=== PATIENT | female | born 1995 | race African-American/Black ===

== ENCOUNTER 2020-05-24 07:30 | Inpatient (IN) | payer OTHER ==
[2020-05-24] MEDS: ELECTROLYTE-148 SOLN 1,000 ML IV SCH (08:40)
[2020-05-24] MEDS ORDERED: CITRIC ACID/SODIUM CITRATE 30 ML UNIT-DOSE CUP PO ONE (08:52)
[2020-05-24 08:56] VITALS: BMI 39.2
--- NOTE | 2020-05-24 09:03 | HP ---
Past Medical History - Primary Care Physician PCP:: Tejinder Limon - Admission Chief Complaint: none. presents for scheduled rpt cesrean section History of Present Illness: pt. had prior for genital hsv. declines . declined valtrex prophylaxis. on seroquel for hx depression. History Source: Patient - Past Medical History Reproductive: Yes: Other (genital hsv. no current lesions per pt.) ...: 4 ...Para: 1 ...Term: 1 ...: 0 ...Spon : 0 ...Induced : 2 ...Living Children: 1 ...Multiple Gestation: 0 ...LMP: 08/22/19 ... Weeks Gestation by Dates: 39.2 ...EDC by Dates: 05/29/20 ...EDC by Sono: 05/28/20 - Past Surgical History Past Surgical History: Yes: Hx Myomectomy: No Hx Transabdominal Cerclage: No - Smoking History Smoking history: Never smoked - Alcohol/Substance Use Hx Alcohol Use: No History of Substance Use: reports: None Home Medications - Allergies Allergies/Adverse Reactions: Allergies Allergy/AdvReac Type Severity Reaction Status Date / Time No Known Allergies Allergy Verified 05/20/20 18:49 - Home Medications Home Medications: Ambulatory Orders Pnv 29-1 Tablet 1 tab PO DAILY 05/17/20 Quetiapine Fumarate [Seroquel -] 400 mg PO HS 05/24/20 Review of Systems - Review of Systems Constitutional: reports: No Symptoms Psychiatric: reports: Depression Physical Exam - Maternity Vital Signs: Vital Signs Temperature 98.4 F 05/24/20 08:28 Pulse Rate 112 H 05/24/20 08:28 Respiratory Rate 20 05/24/20 08:28 Blood Pressure 116/70 05/24/20 08:28 O2 Sat by Pulse Oximetry (%) Constitutional: Yes: Well Nourished, No Distress, Calm Cardiovascular: Yes: WNL Lungs: Clear to auscultation - Abdominal Exam/OB Number of Fetuses: Single Presentation: Vertex Contractions: Yes Regularity: Irregular Intensity: Unaware Monitor Mode: External Heart Rate (range): 140 Accelerations: Uniform Decelerations: None - Vaginal Exam/OB Vaginal Bleeding: No Speculum Exam: No - Physical Exam Musculoskeletal: Yes: WNL Extremities: Yes: WNL - Labs Lab Results: B pos rubella: immune varicella: non immune vdrl : nr hiv: neg gc: neg chl: neg gbs: pos
[2020-05-24] MEDS ORDERED: morphine SULFATE/PF 0.5 MG/ML (2cc Syringe - QUVA) ONE (09:38)
[2020-05-24] MEDS ORDERED: ceFAZolin SODIUM 1 GM VIAL ONE ×2 (10:31)
[2020-05-24] MEDS ORDERED: ceFAZolin SODIUM 1 GM VIAL IVPB ONE (10:32)
[2020-05-24] MEDS ORDERED: OXYTOCIN 10 UNITS/ML VIAL ONE ×4 (10:52→11:36)
[2020-05-24] MEDS ORDERED: METHYLERGONOVINE MALEATE 0.2 MG/1 ML AMP IM ONE (11:13)
[2020-05-24] MEDS ORDERED: ONDANSETRON 4 MG/2 ML VIAL IVPUSH PRN (11:51)
--- NOTE | 2020-05-24 12:06 | OP ---
Operative Note - Note: Operative Date: 05/24/20 Pre-Operative Diagnosis: at 39 weeks, previous , declines tolac Operation: rpt LTCS Findings: rpt LTCS live baby boy, APGARS 9,9 normal appearing uterine body, but fundal area adherent to ant abd wall densely. unable to lyse adhesions or visualize adnexa clearly. uterine repair done without exteriorization. hemostasis with pitocin and methergine skin with veena placenta to pathology [id number]. Post-Operative Diagnosis: Same as Pre-op Surgeon: Tejinder Limon Security Clerk: Eliseo Loyd Anesthesiologist/OCEAN FREIGHT MANAGER: Reyes French Anesthesia: Spinal Specimens Removed: placenta Estimated Blood Loss (mls): 800 Operative Report Dictated: Yes
[2020-05-24 12:13] LABS: CORD BASE EXCESS -3.8 mmol/L (0-2); CORD HCO3 21.5 mmHg (20-29); CORD PCO2 40.2 mmHg (30-78); CORD pH 7.347 (7.14-7.44)
[2020-05-24 12:15] LABS: CORD BASE EXCESS -1.7 mmol/L (0-2); CORD HCO3 26.7 mmHg (20-29); CORD PCO2 60.1 mmHg (30-78); CORD pH 7.266 (7.14-7.44)
[2020-05-24] MEDS ORDERED: oxyCODONE HCL 5 MG TABLET PO PRN (12:15)
[2020-05-24] MEDS ORDERED: IBUPROFEN 600 MG TABLET (FP) PO PRN (12:15)
[2020-05-24] MEDS ORDERED: METHYLERGONOVINE MALEATE 0.2 MG/1 ML AMP IM PRN (12:15)
[2020-05-24 12:22] VITALS: RESP 20; O2SAT 99
[2020-05-24] MEDS ORDERED: ONDANSETRON 4 MG/2 ML VIAL ONE (12:56)
[2020-05-24] MEDS: OXYTOCIN 20 UNITS in 0.9% NS 20 UNIT/1,000 ML INFUS.BAG IV SCH (14:04)
[2020-05-24] MEDS ORDERED: ACETAMINOPHEN 1000 MG/100 ML VIAL (NON FORMULARY) IVPB ONE (14:14)
--- NOTE | 2020-05-24 14:15 | OP ---
DATE OF OPERATION: 05/24/2020 PREOPERATIVE DIAGNOSIS: at 39 weeks with previous section, declined trial of labor after section. OPERATION: A repeat low transverse section. SURGEON: Tejinder Limon MD MODELING AND SIMULATION ANALYST: DICK Pena ANESTHESIA: Spinal anesthesia. ANTIBIOTICS: IV antibiotics were given preoperatively, Ancef. DESCRIPTION OF PROCEDURE: Patient was taken to the operating room, placed on the table in dorsal supine position after spinal anesthesia was administered and found to be adequate. Patient was then prepped and draped in the usual sterile manner. A Pfannenstiel skin incision was made with the scalpel and carried through to the level of the underlying fascia using the electrocautery. Electrocautery was then used the incise the fascia in the midline, extending the incision bilaterally. Fascia was tented up from the underlying rectus muscles, rectus muscles in the midline, and then peritoneum was entered, with good visualization of bladder and bowel. The incision was extended superiorly and inferiorly. Of note at this time was densely adherent uterus to the anterior abdominal wall. The lower uterine segment was incised in a transverse fashion with the scalpel and the incision extended bilaterally with the bandage scissors. The 's head was delivered atraumatically. The nose and mouth were suctioned. The cord was around the foot x1. This was reduced, and then the delayed cord clamping was done past 30 seconds. The infant was handed off to the awaiting tableau report developer. The uterus was unable to be exteriorized. The placenta was expressed, and the uterus was cleared of any clots and debris. The lower uterine segment with closed with running, locking No. 1 Biosyn suture with excellent hemostasis. The uterus was mildly atonic at the time of repair before it was completed, this was noted. Uterine massage was done. IV Pitocin was received and a dose of IM Methergine. Subsequently, uterus contracted well and hemostasis was good. The incision line was inspected and noted to be good and hemostatic, and the pelvis and abdomen were cleared of any clots. The peritoneum was closed with a running 2-0 chromic suture. Following closure of the peritoneum (along with some adherent muscle), the fascia layer was then approximated. This was done using No. 1 Vicryl suture, and the subcutaneous fat layer was approximated with 3-0 plain gut, and then the skin closure was done with veena. Upon completion of the procedure, a sterile dressing was placed over the incision. The uterus was expressed of any clots and debris. The patient tolerated the procedure well. Sponge, lap, needle, and instrument counts were correct x2. Patient was then transferred to recovery room in stable condition. There were no complications. TEJINDER LIMON MD [id number] MTDD
[2020-05-24] MEDS ORDERED: CEFAZOLIN 1 GM in DEXTROSE 5%-WATER - 50 ML IVPB SCH (18:00)
[2020-05-24] MEDS: ACETAMINOPHEN 325 MG TABLET (FP) PO PRN (20:49)
[2020-05-24] MEDS: IBUPROFEN 600 MG TABLET (FP) PO PRN (20:51)
[2020-05-24] MEDS: SIMETHICONE 80 MG TAB.CHEW (FP) PO PRN (20:53)
[2020-05-25] MEDS: CEFAZOLIN 1 GM/D5W 1 GM/50 ML BAG IVPB SCH ×2 (01:53→10:58)
[2020-05-25] MEDS: ACETAMINOPHEN 325 MG TABLET (FP) PO PRN ×3 (05:42→20:46)
[2020-05-25] MEDS: IBUPROFEN 600 MG TABLET (FP) PO PRN ×3 (05:42→20:46)
[2020-05-25] MEDS: SIMETHICONE 80 MG TAB.CHEW (FP) PO PRN ×2 (05:48→20:45)
[2020-05-25 08:11] LABS: BASO % 0.3 % (0-2.0); EOS % 1.2 % (0-4.5); HEMATOCRIT 24.6 % (32.4-45.2); HEMOGLOBIN 8.2 GM/dL (10.7-15.3); LYMPH % 12.1 % (8-40); MCH 29.6 pg (25.7-33.7); MCHC 33.4 g/dl (32.0-36.0); MEAN CELL VOLUME 88.6 fl (80-96); MEAN PLT VOLUME 9.1 fl (7.5-11.1); MONO % 6.4 % (3.8-10.2); PLATELET COUNT 122 K/MM3 (134-434); RBC 2.78 M/mm3 (3.60-5.2); RDW 15.1 % (11.6-15.6); WHITE BLOOD COUNT 8.6 K/mm3 (4.0-10.0)
--- NOTE | 2020-05-25 09:01 | PN ---
Post Progress Note - Subjective Subjective: Denies any complaints Dillard out, has not voided yet History of depression and bipolar on Seroquel Post Day: 1 Type of Delivery: Repeat C/S Vital Signs: Vital Signs Temperature 98.6 F 05/25/20 06:00 Pulse Rate 110 H 05/25/20 06:00 Respiratory Rate 18 05/25/20 06:00 Blood Pressure 109/64 05/25/20 06:00 O2 Sat by Pulse Oximetry (%) 100 05/24/20 18:00 Uterus: Yes: Fundus Firm Incision: Yes: Dressing dry and intact Abdomen/GI: Yes: Abdomen soft Lochia: Yes: Rubra Lochia, amount: Small Extremities: Yes: Calves non-tender Activity: Ambulating (Ambulation, pain management, psych consult, poss discharge POD 3) - Labs Labs: CBC WBC 8.6 K/mm3 (4.0-10.0) 05/25/20 07:35 RBC 2.78 M/mm3 (3.60-5.2) L 05/25/20 07:35 Hgb 8.2 GM/dL (10.7-15.3) L 05/25/20 07:35 Hct 24.6 % (32.4-45.2) L D 05/25/20 07:35 MCV 88.6 fl (80-96) 05/25/20 07:35 MCH 29.6 pg (25.7-33.7) 05/25/20 07:35 MCHC 33.4 g/dl (32.0-36.0) 05/25/20 07:35 RDW 15.1 % (11.6-15.6) 05/25/20 07:35 Plt Count 122 K/MM3 (134-434) L D 05/25/20 07:35 MPV 9.1 fl (7.5-11.1) 05/25/20 07:35 Absolute Neuts (auto) 6.9 K/mm3 (1.5-8.0) 05/25/20 07:35 Neutrophils % 80.0 % (42.8-82.8) 05/25/20 07:35 Lymphocytes % 12.1 % (8-40) 05/25/20 07:35 Monocytes % 6.4 % (3.8-10.2) 05/25/20 07:35 Eosinophils % 1.2 % (0-4.5) 05/25/20 07:35 Basophils % 0.3 % (0-2.0) 05/25/20 07:35 Nucleated RBC % 0 % (0-0) 05/25/20 07:35
[2020-05-25] MEDS: ENOXAPARIN NA (PORCINE) 40 MG/0.4 ML DISP.SYRIN SQ SCH (11:14)
[2020-05-25] MEDS ORDERED: BISACODYL 10 MG SUPP.RECT RC PRN (12:15)
--- NOTE | 2020-05-25 12:17 | PN ---
Progress Note, Physician Chief Complaint: s/p c section under spinal anesthesia History of Present Illness: post op day one with duramorph for post op pain control - Current Medication List Current Medications: Active Medications Acetaminophen (Tylenol -) 650 mg PO Q4H PRN PRN Reason: FEVER Last Admin: 05/25/20 11:08 Dose: 650 mg Documented by: Bisacodyl (Dulcolax Suppository -) 10 mg RC PRN PRN PRN Reason: CONSTIPATION Diphenhydramine HCl (Benadryl Injection -) 25 mg IVPUSH Q4H PRN PRN Reason: Pruritis Last Admin: 05/25/20 05:42 Dose: 25 mg Documented by: Enoxaparin Sodium (Lovenox -) 40 mg SQ DAILY [facility] Last Admin: 05/25/20 11:14 Dose: 40 mg Documented by: Ferrous Sulfate (Feosol -) 325 mg PO BIDWM [facility] Parenteral Electrolytes (Plasma-Lyte 148 -) 1,000 mls @ 125 mls/hr IV ASDIR [facility] Last Admin: 05/24/20 08:40 Dose: 125 mls/hr Documented by: Oxytocin/Sodium Chloride (Normal Saline+20 Units Oxytocin -) 20 unit in 1,000 mls @ 125 mls/hr IV ASDIR [facility] Last Admin: 05/24/20 14:04 Dose: 125 mls/hr Documented by: Ibuprofen (Motrin -) 600 mg PO Q4H PRN PRN Reason: PAIN LEVEL 1-5 Last Admin: 05/25/20 10:58 Dose: 600 mg Documented by: Methylergonovine Maleate (Methergine Injection -) 0.2 mg IM Q4H PRN PRN Reason: Excessive Bleeding (L&D) Ondansetron HCl (Zofran Injection) 4 mg IVPUSH Q4H PRN PRN Reason: NAUSEA Last Admin: 05/24/20 13:00 Dose: 4 mg Documented by: Oxycodone HCl (Roxicodone -) 5 mg PO Q4H PRN PRN Reason: PAIN LEVEL 4 - 6 Oxycodone HCl (Roxicodone -) 10 mg PO Q4H PRN PRN Reason: PAIN LEVEL 7 - 10 Quetiapine Fumarate (Seroquel Xr -) 400 mg PO HS@1999 [facility] Last Admin: 05/24/20 22:36 Dose: 400 mg Documented by: Simethicone (Mylicon -) 80 mg PO Q4H PRN PRN Reason: GAS Last Admin: 05/25/20 05:48 Dose: 80 mg Documented by: - Objective Vital Signs: Vital Signs Temperature 97.7 F 05/25/20 10:00 Pulse Rate 117 H 05/25/20 10:00 Respiratory Rate 16 05/25/20 10:00 Blood Pressure 102/55 L 05/25/20 10:00 O2 Sat by Pulse Oximetry (%) 100 05/25/20 10:00 Constitutional: Yes: Well Nourished Cardiovascular: Yes: WNL Respiratory: Yes: WNL Gastrointestinal: Yes: WNL Labs: CBC, BMP 05/25/20 07:35 Assessment/Plan No adverse effects of anesthetic, pain controlled, dept of anesthesiology will sign off care at this time
--- NOTE | 2020-05-25 12:31 | CON.PSY ---
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 Has been seen at [facility] in [facility].Patient has been stable and not displaying any acute Depression or Psychosis. No suicidal or Homicidal ideas. Loves her baby and has good support system at home. - Previous Psychiatric Treatment Outpatient: More than 6 mos ago Inpatient: Within the last 12 months, One prior admission - Previous Substance Abuse Treatment Outpatient: None Inpatient: None - Reason for Previous Treatment Reason for Previous Treatment: Major Depression - Current Medications Current Medications: Active Medications Acetaminophen (Tylenol -) 650 mg PO Q4H PRN PRN Reason: FEVER Last Admin: 05/25/20 11:08 Dose: 650 mg Documented by: Bisacodyl (Dulcolax Suppository -) 10 mg RC PRN PRN PRN Reason: CONSTIPATION Diphenhydramine HCl (Benadryl Injection -) 25 mg IVPUSH Q4H PRN PRN Reason: Pruritis Last Admin: 05/25/20 05:42 Dose: 25 mg Documented by: Enoxaparin Sodium (Lovenox -) 40 mg SQ DAILY [facility] Last Admin: 05/25/20 11:14 Dose: 40 mg Documented by: Ferrous Sulfate (Feosol -) 325 mg PO BIDWM [facility] Parenteral Electrolytes (Plasma-Lyte 148 -) 1,000 mls @ 125 mls/hr IV ASDIR [facility] Last Admin: 05/24/20 08:40 Dose: 125 mls/hr Documented by: Oxytocin/Sodium Chloride (Normal Saline+20 Units Oxytocin -) 20 unit in 1,000 mls @ 125 mls/hr IV ASDIR [facility] Last Admin: 05/24/20 14:04 Dose: 125 mls/hr Documented by: Ibuprofen (Motrin -) 600 mg PO Q4H PRN PRN Reason: PAIN LEVEL 1-5 Last Admin: 05/25/20 10:58 Dose: 600 mg Documented by: Methylergonovine Maleate (Methergine Injection -) 0.2 mg IM Q4H PRN PRN Reason: Excessive Bleeding (L&D) Ondansetron HCl (Zofran Injection) 4 mg IVPUSH Q4H PRN PRN Reason: NAUSEA Last Admin: 05/24/20 13:00 Dose: 4 mg Documented by: Oxycodone HCl (Roxicodone -) 5 mg PO Q4H PRN PRN Reason: PAIN LEVEL 4 - 6 Oxycodone HCl (Roxicodone -) 10 mg PO Q4H PRN PRN Reason: PAIN LEVEL 7 - 10 Quetiapine Fumarate (Seroquel Xr -) 400 mg PO HS@1999 [facility] Last Admin: 05/24/20 22:36 Dose: 400 mg Documented by: Simethicone (Mylicon -) 80 mg PO Q4H PRN PRN Reason: GAS Last Admin: 05/25/20 05:48 Dose: 80 mg Documented by: - Allergies Allergies: Allergies Allergy/AdvReac Type Severity Reaction Status Date / Time No Known Allergies Allergy Verified 05/20/20 18:49 - Current Living Status Usual Living Arrangement: With Significant Other - Current Mental Status Evaluation Appearance: Well Groomed Attitude: Cooperative - Affect Affect: Full Range Appropriateness: Appropriate to Content - Mood Mood: Euthymic - Speech/Language Expressive: Coherent - Psychomotor Activity Psychomotor Activity: Normal - Thought Process Thought Process: Intact - Thought Content Hallucinations: Absent Delusions: Absent - Self Perception Self Perception: No Impairment - Cognition Attention: Alert Orientation: Time Memory, Immediate Recall: Intact Memory, Short Term: 3/3 Memory, Remote with Promptin/3 - Concentration Serial Sevens Intact: Yes Simple Calculations Intact: Yes - Abstraction Proverb Interpretation: Intact Judgement: Intact - Insight Insight: Intact - Impulse Control Impulse Control: Good Control - Suicidal Ideation Suicidal Ideation: No - Homicidal Ideation Homicidal Ideation: No Assessment/Plan 10 Patient is Psychiatrically stable at this time. @) continue with Seroquel 400 mg er hs. 3) will follow up with her [facility]/.
[2020-05-25] MEDS: FERROUS SO4 325 MG TABLET (FP) PO SCH (18:42)
[2020-05-25] MEDS: oxyCODONE HCL 5 MG TABLET PO PRN (20:47)
[2020-05-25 21:43] LABS: BASO % 0.4 % (0-2.0); EOS % 0.9 % (0-4.5); HEMATOCRIT 25.9 % (32.4-45.2); HEMOGLOBIN 8.8 GM/dL (10.7-15.3); LYMPH % 8.9 % (8-40); MCH 30.2 pg (25.7-33.7); MCHC 33.8 g/dl (32.0-36.0); MEAN CELL VOLUME 89.2 fl (80-96); MEAN PLT VOLUME 8.7 fl (7.5-11.1); MONO % 5.8 % (3.8-10.2); PLATELET COUNT 149 K/MM3 (134-434); RBC 2.91 M/mm3 (3.60-5.2); RDW 15.3 % (11.6-15.6); WHITE BLOOD COUNT 9.9 K/mm3 (4.0-10.0)
[2020-05-25] MEDS ORDERED: LACTATED RINGERS SOLUTION 1,000 ML IV SCH (21:45)
[2020-05-26] MEDS: SIMETHICONE 80 MG TAB.CHEW (FP) PO PRN (06:04)
[2020-05-26] MEDS: IBUPROFEN 600 MG TABLET (FP) PO PRN ×3 (06:04→22:42)
[2020-05-26] MEDS: ACETAMINOPHEN 325 MG TABLET (FP) PO PRN ×3 (06:04→22:43)
[2020-05-26] MEDS: oxyCODONE HCL 5 MG TABLET PO PRN (06:04)
[2020-05-26] MEDS ORDERED: ACETAMINOPHEN 500 MG TABLET (FP) PO ONE (06:30)
[2020-05-26] MEDS ORDERED: CEFAZOLIN 2 GM/D5W 2 GM/50 ML ML IVPB SCH (06:45)
[2020-05-26] MEDS ORDERED: LACTATED RINGERS SOLUTION 500 ML IV ONE (06:45)
--- NOTE | 2020-05-26 08:08 | PN ---
Post Progress Note Type of Delivery: Repeat C/S Vital Signs: Vital Signs Temperature 103.1 F H 05/26/20 06:00 Pulse Rate 140 H 05/26/20 06:00 Respiratory Rate 18 05/26/20 06:00 Blood Pressure 113/56 L 05/26/20 06:00 O2 Sat by Pulse Oximetry (%) 98 05/26/20 06:00 Breast Exam: Yes: Soft Uterus: Yes: Fundus Firm Incision: Yes: Dressing dry and intact Abdomen/GI: Yes: Abdomen soft Extremities: Yes: Calves non-tender Activity: Ambulating - Labs Labs: CBC WBC 9.9 K/mm3 (4.0-10.0) 05/25/20 21:35 RBC 2.91 M/mm3 (3.60-5.2) L 05/25/20 21:35 Hgb 8.8 GM/dL (10.7-15.3) L 05/25/20 21:35 Hct 25.9 % (32.4-45.2) L 05/25/20 21:35 MCV 89.2 fl (80-96) 05/25/20 21:35 MCH 30.2 pg (25.7-33.7) 05/25/20 21:35 MCHC 33.8 g/dl (32.0-36.0) 05/25/20 21:35 RDW 15.3 % (11.6-15.6) 05/25/20 21:35 Plt Count 149 K/MM3 (134-434) D 05/25/20 21:35 MPV 8.7 fl (7.5-11.1) 05/25/20 21:35 Absolute Neuts (auto) 8.4 K/mm3 (1.5-8.0) H 05/25/20 21:35 Neutrophils % 84.0 % (42.8-82.8) H 05/25/20 21:35 Lymphocytes % 8.9 % (8-40) D 05/25/20 21:35 Monocytes % 5.8 % (3.8-10.2) 05/25/20 21:35 Eosinophils % 0.9 % (0-4.5) 05/25/20 21:35 Basophils % 0.4 % (0-2.0) 05/25/20 21:35 Nucleated RBC % 0 % (0-0) 05/25/20 21:35 Other Findings, Remarks: s/p CS day 2 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
--- NOTE | 2020-05-26 08:21 | RAPID ---
Physical Examination Vital Signs: Vital Signs Temperature 103.1 F H 05/26/20 06:00 Pulse Rate 140 H 05/26/20 06:00 Respiratory Rate 18 05/26/20 06:00 Blood Pressure 113/56 L 05/26/20 06:00 O2 Sat by Pulse Oximetry (%) 98 05/26/20 06:00 Constitutional: Yes: Well Nourished, No Distress, Calm HENT: Yes: WNL Neck: Yes: WNL Cardiovascular: Yes: Tachycardia Labs: CBC, BMP 05/25/20 21:35 Rapid Response - Rapid Response Assessment: Rapid response arrived to patient at 7:15. (There was difficulty in unders tanding whether the overhead speaker had said 8W, 6W, or 3W) Patient lying in bed in no acute distress. Rapid response had been called due to the patient having a fever, tachycardia, and low blood pressure. Patient reported feeling only slight shortness of breath. The patient had recently had a on 05/24 two days ago. Vitals taken at bedside were 100.2F, 102/49, 136 bpm, 18 breaths per minute, 97% Room Air. CXR, ECG, Blood Cultures, Urine Culture, CMP, CBC, Mg ordered as per fever workup. ECG showed sinus tachycardia.
[2020-05-26] MEDS: FERROUS SO4 325 MG TABLET (FP) PO SCH ×2 (08:48→17:13)
[2020-05-26] MEDS ORDERED: SODIUM CHLORIDE 100 ML IVPB ONE (08:53)
[2020-05-26] MEDS ORDERED: AMPICILLIN SODIUM 2 GM VIAL ONE (08:53)
[2020-05-26] MEDS ORDERED: AMPICILLIN - 2 GM in SODIUM CHLORIDE 100 ML IVPB SCH (09:00)
[2020-05-26] MEDS ORDERED: MAGNESIUM HYDROX 2400MG/30ML ORAL SUSPENSION 30 ML CUP PO ONE (09:09)
--- NOTE | 2020-05-26 09:09 | PN ---
Post Progress Note - Subjective Subjective: Fever, feels better now pt thinks might be UTI Flatus + BM none Type of Delivery: Repeat C/S Vital Signs: Vital Signs Temperature 103.1 F H 05/26/20 06:00 Pulse Rate 140 H 05/26/20 06:00 Respiratory Rate 18 05/26/20 06:00 Blood Pressure 113/56 L 05/26/20 06:00 O2 Sat by Pulse Oximetry (%) 98 05/26/20 06:00 Breast Exam: Yes: Soft Uterus: Yes: Fundus Firm, Fundus above umbilicus Incision: Yes: Dressing dry and intact Abdomen/GI: Yes: Abdomen soft, Tender Lochia: Yes: Rubra Lochia, amount: Small Extremities: Yes: Calves non-tender (Encouriage ambulation; incentive spirometer; pt declined ) - Labs Labs: CBC WBC 9.9 K/mm3 (4.0-10.0) 05/25/20 21:35 RBC 2.91 M/mm3 (3.60-5.2) L 05/25/20 21:35 Hgb 8.8 GM/dL (10.7-15.3) L 05/25/20 21:35 Hct 25.9 % (32.4-45.2) L 05/25/20 21:35 MCV 89.2 fl (80-96) 05/25/20 21:35 MCH 30.2 pg (25.7-33.7) 05/25/20 21:35 MCHC 33.8 g/dl (32.0-36.0) 05/25/20 21:35 RDW 15.3 % (11.6-15.6) 05/25/20 21:35 Plt Count 149 K/MM3 (134-434) D 05/25/20 21:35 MPV 8.7 fl (7.5-11.1) 05/25/20 21:35 Absolute Neuts (auto) 8.4 K/mm3 (1.5-8.0) H 05/25/20 21:35 Neutrophils % 84.0 % (42.8-82.8) H 05/25/20 21:35 Lymphocytes % 8.9 % (8-40) D 05/25/20 21:35 Monocytes % 5.8 % (3.8-10.2) 05/25/20 21:35 Eosinophils % 0.9 % (0-4.5) 05/25/20 21:35 Basophils % 0.4 % (0-2.0) 05/25/20 21:35 Nucleated RBC % 0 % (0-0) 05/25/20 21:35 Assessment/Plan Ambulate Incentive spirometer Milk of magnesia Close observation May shower
[2020-05-26 09:27] LABS: BASO % 0.1 % (0-2.0); EOS % 0.6 % (0-4.5); HEMATOCRIT 23.4 % (32.4-45.2); LYMPH % 11.1 % (8-40); MCH 30.2 pg (25.7-33.7); MEAN CELL VOLUME 88.7 fl (80-96); MEAN PLT VOLUME 8.4 fl (7.5-11.1); MONO % 5.3 % (3.8-10.2); NEUT % 82.9 % (42.8-82.8); PLATELET COUNT 152 K/MM3 (134-434); RBC 2.64 M/mm3 (3.60-5.2); RDW 15.3 % (11.6-15.6); WHITE BLOOD COUNT 8.8 K/mm3 (4.0-10.0)
--- NOTE | 2020-05-26 09:53 | HOSP ---
Subjective - Review of Symptoms Subjective: This is a 24 year old female with PMH of depression. She was admitted for a scheduled , and is POD#2. Hospitalist consult was placed for rapid response this morning when the pt was found to have a a fever and tachycardia Physical Examination Vital Signs: Vital Signs Temperature 103.1 F H 05/26/20 06:00 Pulse Rate 140 H 05/26/20 06:00 Respiratory Rate 18 05/26/20 06:00 Blood Pressure 113/56 L 05/26/20 06:00 O2 Sat by Pulse Oximetry (%) 98 05/26/20 06:00 Findings/Remarks: Vitals before rapid response: Temp 103.1, HR 140, BP 113/56 SpO2 98% on Room Air Vitals during examination: Temp 100.2, HR 136, BP 102/49, SpO2 97% on Room Air General: AOx3, in no acute distress Lungs: Clear B/L Heart: Elevated rate, regular rhythm Abdomen: Soft, mildly tender diffusely, no CVA tenderness Extremities: Non-pitting edema, pulses intact, no calf tenderness Labs: CBC, BMP 05/26/20 09:00 Hospitalist Encounter Assessment: A&P: - 24 yo female POD#2 after uncomplicated found to be febrile and tachycardic this morning (meets SIRS criteria), no current source for infection. - Will investigate source: CXR clear, UA ordered, Urine/Blood cx pending - UA noted to be 2+ positive for blood, no evidence of UTI. Will repeat in AM to confirm hematuria, will F/U CTAP to r/o bladder pathology - CTAP ordered - CBC with H/H drop 8.8 -> 8.0, will monitor and consider transfusion <7 - Started on Ampicillin, Gentamicin, Cefazolin, and Metronidazole, switched to Zosyn as per ID - Received LR 500ml bolus, starting on maintenance LR @ 100
[2020-05-26 09:57] LABS: BILIRUBIN,TOTAL 0.2 mg/dL (0.2-1); CALCIUM 7.8 mg/dL (8.5-10.1); CREATININE 0.6 mg/dL (0.55-1.3); MAGNESIUM 1.9 mg/dL (1.8-2.4); POTASSIUM 3.5 mmol/L (3.5-5.1); TOT PROT 4.9 g/dl (6.4-8.2)
[2020-05-26] MEDS ORDERED: GENTAMICIN 80 MG PREMIXED IVPB 80 MG/100 ML BAG IVPB SCH (10:00)
[2020-05-26 10:51] LABS: EPI CELLS 10 /uL (0-25.1); HYALINE CASTS 0 /uL (0-3.1); PH,URINE 5.5 (5.0-8.0); URINE APPEARANCE CLEAR; URINE BACTERIA 4 /uL (0-1359); URINE BILIRUBIN NEGATIVE (NEGATIVE); URINE COLOR YELLOW; URINE GLUCOSE (UA) NEGATIVE (NEGATIVE); URINE KETONE NEGATIVE (NEGATIVE); URINE LEUK ESTERASE NEGATIVE (NEGATIVE); URINE NITRITE NEGATIVE (NEGATIVE); URINE PROTEIN NEGATIVE (NEGATIVE); URINE RBC 154 /uL (0-23.9); URINE UROBILINOGEN 0.2 mg/dL (0.2-1.0); URINE WBC 6 /uL (0-25.8)
[2020-05-26] MEDS: ENOXAPARIN NA (PORCINE) 40 MG/0.4 ML DISP.SYRIN SQ SCH (11:43)
--- NOTE | 2020-05-26 11:43 | CON.ID ---
Consult Consult Specialty:: infectious diseases Referred by:: Reason for Consultation:: sepsis,fever - History of Present Illness Chief Complaint: abd pain,fever History of Present Illness: patient who was admitted to the hospital for deleivery and underwent pt. had prior for genital hsv. declines . declined valtrex prophylaxis. on seroquel for hx depression. post c section patient spiked fever,had csection 2 days back was given multiple abx,,---anceff,genta,flagyl inspite of the abx patient spiked fever very tender in the belly,inscision site looks good also patient not able to hold urine - History Source History Provided By: Patient, Medical Record Limitations to Obtaining History: Poor Historian - Past Surgical History Past Surgical History: Yes: - Alcohol/Substance Use Hx Alcohol Use: No History of Substance Use: reports: None - Smoking History Smoking history: Never smoked - Social History Usual Living Arrangement: With Significant Other Home Medications - Allergies Allergies/Adverse Reactions: Allergies Allergy/AdvReac Type Severity Reaction Status Date / Time No Known Allergies Allergy Verified 05/20/20 18:49 - Home Medications Home Medications: Ambulatory Orders Pnv 29-1 Tablet 1 tab PO DAILY 05/17/20 Quetiapine Fumarate [Seroquel -] 400 mg PO HS 05/24/20 Review of Systems - Review of Systems Constitutional: reports: Fever, Other Eyes: reports: No Symptoms HENT: reports: No Symptoms Neck: reports: No Symptoms Cardiovascular: reports: No Symptoms Respiratory: reports: No Symptoms Gastrointestinal: reports: Abdominal Pain Genitourinary: reports: Other Musculoskeletal: reports: No Symptoms Integumentary: reports: No Symptoms Neurological: reports: No Symptoms Endocrine: reports: No Symptoms Hematology/Lymphatic: reports: No Symptoms Psychiatric: reports: No Symptoms Physical Exam Vital Signs: Vital Signs Temperature 103.1 F H 05/26/20 06:00 Pulse Rate 140 H 05/26/20 06:00 Respiratory Rate 18 05/26/20 06:00 Blood Pressure 113/56 L 05/26/20 06:00 O2 Sat by Pulse Oximetry (%) 98 05/26/20 06:00 Constitutional: Yes: Calm, Mild Distress, Obese Eyes: Yes: Conjunctiva Clear HENT: Yes: Atraumatic, Normocephalic Neck: Yes: Supple, Trachea Midline Cardiovascular: Yes: Regular Rate and Rhythm Respiratory: Yes: Regular, CTA Bilaterally Gastrointestinal: Yes: Soft, Tenderness (rt lower quadraant) Musculoskeletal: Yes: WNL Extremities: Yes: WNL Neurological: Yes: Alert, Oriented Psychiatric: Yes: Alert, Oriented Labs: CBC, BMP 05/26/20 09:00 05/26/20 09:00 Imaging - Results Chest X-ray: Report Reviewed, Image Reviewed Assessment/Plan this patient with multiple medical issues who underwent and has been spiking fevers i am going to stop all abx and switch her to zosyn 'await for all cx reports--blood cx and urine cx i would also suggest getting a ct scan of the abdomen rest as per the team
[2020-05-26] MEDS: LACTATED RINGERS SOLUTION 1,000 ML/1,000 ML INFUS.BAG IV SCH (11:44)
[2020-05-26] MEDS: PIPERACILLIN/TAZOB 4.5 GM 4.5 GM in DEXTROSE 5%-WATER 100 ML IVPB SCH ×2 (11:58→18:35)
--- NOTE | 2020-05-26 16:00 | PN ---
Progress Note (short form) - Note Progress Note: S/P rpt c/s x 2 Fever, chills, tachycardia Temp 99.5 F P 140 H/H 06/12 Discussed blood transfusion with pt; risks, benefits, alternatives discussed. Pt verbalized understanding and declined blood transfusion. Pt lucy let us know if changing her mind
[2020-05-26] MEDS: ELECTROLYTE-148 SOLN 1,000 ML IV SCH (19:58)
[2020-05-26] MEDS: OXYTOCIN 20 UNITS in 0.9% NS 20 UNIT/1,000 ML INFUS.BAG IV SCH (19:58)
[2020-05-27] MEDS: PIPERACILLIN/TAZOB 4.5 GM 4.5 GM in DEXTROSE 5%-WATER 100 ML IVPB SCH ×3 (01:06→18:00)
[2020-05-27 08:16] LABS: BASO % 0.3 % (0-2.0); EOS % 2.4 % (0-4.5); HEMATOCRIT 24.8 % (32.4-45.2); HEMOGLOBIN 8.5 GM/dL (10.7-15.3); LYMPH % 16.1 % (8-40); MCH 29.9 pg (25.7-33.7); MCHC 34.3 g/dl (32.0-36.0); MEAN PLT VOLUME 8.2 fl (7.5-11.1); MONO % 7.5 % (3.8-10.2); NEUT % 73.7 % (42.8-82.8); PLATELET COUNT 189 K/MM3 (134-434); RBC 2.85 M/mm3 (3.60-5.2); WHITE BLOOD COUNT 9.9 K/mm3 (4.0-10.0)
[2020-05-27 08:42] LABS: ALBUMIN 1.8 g/dl (3.4-5.0); BILIRUBIN,TOTAL 0.4 mg/dL (0.2-1); BLOOD UREA NITROGEN 4.5 mg/dL (7-18); CALCIUM 7.9 mg/dL (8.5-10.1); CREATININE 0.6 mg/dL (0.55-1.3); POTASSIUM 3.9 mmol/L (3.5-5.1); TOT PROT 4.4 g/dl (6.4-8.2)
[2020-05-27] MEDS: IBUPROFEN 600 MG TABLET (FP) PO PRN ×3 (09:13→23:30)
[2020-05-27] MEDS: FERROUS SO4 325 MG TABLET (FP) PO SCH ×2 (09:13→18:00)
[2020-05-27] MEDS: ACETAMINOPHEN 325 MG TABLET (FP) PO PRN ×3 (09:14→23:31)
[2020-05-27] MEDS: SIMETHICONE 80 MG TAB.CHEW (FP) PO PRN ×3 (09:15→23:31)
[2020-05-27 09:32] LABS: ANISOCYTOSIS 0; MACROCYTOSIS 0; PLATELET ESTIMATE NORMAL
--- NOTE | 2020-05-27 09:49 | PN ---
Post Progress Note Post Day: 3 Type of Delivery: Repeat C/S Vital Signs: Vital Signs Temperature 97.5 F L 05/27/20 06:00 Pulse Rate 86 05/27/20 06:00 Respiratory Rate 18 05/27/20 06:00 Blood Pressure 101/68 05/27/20 06:00 O2 Sat by Pulse Oximetry (%) 100 05/27/20 06:00 Breast Exam: Yes: Soft Uterus: Yes: Fundus Firm Incision: Yes: Yosvany intact Abdomen/GI: Yes: Abdomen soft Lochia: Yes: Rubra Lochia, amount: Small Extremities: Yes: Calves non-tender Activity: Ambulating - Labs Labs: CBC WBC 9.9 K/mm3 (4.0-10.0) 05/27/20 07:36 RBC 2.85 M/mm3 (3.60-5.2) L 05/27/20 07:36 Hgb 8.5 GM/dL (10.7-15.3) L 05/27/20 07:36 Hct 24.8 % (32.4-45.2) L 05/27/20 07:36 MCV 87.0 fl (80-96) 05/27/20 07:36 MCH 29.9 pg (25.7-33.7) 05/27/20 07:36 MCHC 34.3 g/dl (32.0-36.0) 05/27/20 07:36 RDW 16.0 % (11.6-15.6) H 05/27/20 07:36 Plt Count 189 K/MM3 (134-434) D 05/27/20 07:36 MPV 8.2 fl (7.5-11.1) 05/27/20 07:36 Absolute Neuts (auto) 7.3 K/mm3 (1.5-8.0) 05/27/20 07:36 Neutrophils % 73.7 % (42.8-82.8) 05/27/20 07:36 Neutrophils % (Manual) 70.7 % (42.8-82.8) 05/27/20 07:36 Band Neutrophils % 9.1 % 05/27/20 07:36 Lymphocytes % 16.1 % (8-40) D 05/27/20 07:36 Lymphocytes % (Manual) 14.2 % (8-40) 05/27/20 07:36 Monocytes % 7.5 % (3.8-10.2) 05/27/20 07:36 Monocytes % (Manual) 3 % (3.8-10.2) L 05/27/20 07:36 Eosinophils % 2.4 % (0-4.5) D 05/27/20 07:36 Eosinophils % (Manual) 1.0 % (0-4.5) 05/27/20 07:36 Basophils % 0.3 % (0-2.0) 05/27/20 07:36 Basophils % (Manual) 0.0 % (0-2.0) 05/27/20 07:36 Myelocytes % (Man) 0 % (0-2) 05/27/20 07:36 Promyelocytes % (Man) 0 % (0-2) 05/27/20 07:36 Blast Cells % (Manual) 0 % (0-0) 05/27/20 07:36 Nucleated RBC % 0 % (0-0) 05/27/20 07:36 Metamyelocytes 1 % (0-2) 05/27/20 07:36 Hypochromia 0 05/27/20 07:36 Platelet Estimate Normal 05/27/20 07:36 Polychromasia 0 05/27/20 07:36 Poikilocytosis 0 05/27/20 07:36 Anisocytosis 0 05/27/20 07:36 Microcytosis 0 05/27/20 07:36 Macrocytosis 0 05/27/20 07:36 Assessment/Plan POD #3, stable h/o depression, s/p psych consult - cleared for discharge s/p ID consult due to fever & tachycardia - CT abdomen & pelvis and CXR negative, WBC WNL, urine culture pending s/p transfusion 2 units PRBC, Hb/Hct 06/13, VSS Monitor vitals Regular diet Ambulation encouraged Pain management Desires circumcision for - consent obtained Consider discharge in AM
[2020-05-27] MEDS: ENOXAPARIN NA (PORCINE) 40 MG/0.4 ML DISP.SYRIN SQ SCH (10:35)
--- NOTE | 2020-05-27 11:00 | PN ---
Progress Note, Physician History of Present Illness: stable feels much better ct scan seen - Current Medication List Current Medications: Active Medications Acetaminophen (Tylenol -) 650 mg PO Q4H PRN PRN Reason: FEVER Last Admin: 05/27/20 09:14 Dose: 650 mg Documented by: Bisacodyl (Dulcolax Suppository -) 10 mg RC PRN PRN PRN Reason: CONSTIPATION Diphenhydramine HCl (Benadryl Injection -) 25 mg IVPUSH Q4H PRN PRN Reason: Pruritis Last Admin: 05/25/20 05:42 Dose: 25 mg Documented by: Enoxaparin Sodium (Lovenox -) 40 mg SQ DAILY [facility] Last Admin: 05/27/20 10:35 Dose: 40 mg Documented by: Ferrous Sulfate (Feosol -) 325 mg PO BIDWM [facility] Last Admin: 05/27/20 09:13 Dose: 325 mg Documented by: Parenteral Electrolytes (Plasma-Lyte 148 -) 1,000 mls @ 125 mls/hr IV ASDIR [facility] Last Admin: 05/26/20 19:58 Dose: Not Given Documented by: Oxytocin/Sodium Chloride (Normal Saline+20 Units Oxytocin -) 20 unit in 1,000 mls @ 125 mls/hr IV ASDIR [facility] Last Admin: 05/26/20 19:58 Dose: Not Given Documented by: Lactated Ringer's (Lactated Ringers Solution) 1,000 ml in 1,000 mls @ 100 mls/hr IV ASDIR [facility] Last Admin: 05/26/20 11:44 Dose: 100 mls/hr Documented by: Piperacillin Sod/Tazobactam (Sod 4.5 gm/ Dextrose) 100 mls @ 200 mls/hr IVPB Q8H-IV [facility]; Protocol Last Admin: 05/27/20 10:34 Dose: 200 mls/hr Documented by: Ibuprofen (Motrin -) 600 mg PO Q4H PRN PRN Reason: PAIN LEVEL 1-5 Last Admin: 05/27/20 09:13 Dose: 600 mg Documented by: Methylergonovine Maleate (Methergine Injection -) 0.2 mg IM Q4H PRN PRN Reason: Excessive Bleeding (L&D) Ondansetron HCl (Zofran Injection) 4 mg IVPUSH Q4H PRN PRN Reason: NAUSEA Last Admin: 05/24/20 13:00 Dose: 4 mg Documented by: Oxycodone HCl (Roxicodone -) 5 mg PO Q4H PRN PRN Reason: PAIN LEVEL 4 - 6 Last Admin: 05/26/20 06:04 Dose: 5 mg Documented by: Oxycodone HCl (Roxicodone -) 10 mg PO Q4H PRN PRN Reason: PAIN LEVEL 7 - 10 Quetiapine Fumarate (Seroquel Xr -) 400 mg PO HS@2000 [facility] Last Admin: 05/27/20 00:15 Dose: 400 mg Documented by: Simethicone (Mylicon -) 80 mg PO Q4H PRN PRN Reason: GAS Last Admin: 05/27/20 09:15 Dose: 80 mg Documented by: - Objective Vital Signs: Vital Signs Temperature 97.9 F 05/27/20 09:00 Pulse Rate 104 H 05/27/20 09:00 Respiratory Rate 20 05/27/20 09:00 Blood Pressure 126/58 L 05/27/20 09:00 O2 Sat by Pulse Oximetry (%) 100 05/27/20 09:00 Constitutional: Yes: No Distress, Calm Cardiovascular: Yes: S1, S2 Respiratory: Yes: Regular, CTA Bilaterally Gastrointestinal: Yes: Soft, Hypoactive Bowel Sounds Musculoskeletal: Yes: WNL Extremities: Yes: WNL Neurological: Yes: Alert, Oriented Labs: CBC, BMP 05/27/20 07:36 05/27/20 06:00 Assessment/Plan abd pain fever plan continue abx if patient remains afebrile today then might switch to oral
[2020-05-27] MEDS: LACTATED RINGERS SOLUTION 1,000 ML/1,000 ML INFUS.BAG IV SCH (12:00)
--- NOTE | 2020-05-27 13:09 | EKG ---
Test Reason : Blood Pressure : / mmHG Vent. Rate : 124 BPM Atrial Rate : 124 BPM P-R Int : 126 ms QRS Dur : 078 ms QT Int : 306 ms P-R-T Axes : 063 061 039 degrees QTc Int : 439 ms SINUS TACHYCARDIA NONSPECIFIC ST ABNORMALITY ABNORMAL ECG NO PREVIOUS ECGS AVAILABLE Confirmed by EUGENIA BALDWIN MD ([id number]) on 05/27/2020 1:09:03 PM Referred By: Confirmed By:EUGENIA BALDWIN MD
[2020-05-27] MEDS: ELECTROLYTE-148 SOLN 1,000 ML IV SCH (23:29)
[2020-05-27] MEDS: OXYTOCIN 20 UNITS in 0.9% NS 20 UNIT/1,000 ML INFUS.BAG IV SCH (23:30)
[2020-05-28] MEDS: PIPERACILLIN/TAZOB 4.5 GM 4.5 GM in DEXTROSE 5%-WATER 100 ML IVPB SCH (01:48)
--- NOTE | 2020-05-28 08:59 | DS ---
Physical Exam-SUPPORT ASSOCIATE Vital Signs: Vital Signs Temperature 97.4 F L 05/28/20 06:23 Pulse Rate 96 H 05/27/20 21:18 Respiratory Rate 20 05/27/20 21:18 Blood Pressure 112/59 L 05/27/20 21:18 O2 Sat by Pulse Oximetry (%) 99 05/27/20 21:18 Constitutional: Yes: Well Nourished, No Distress, Calm Eyes: Yes: WNL, Conjunctiva Clear, EOM Intact HENT: Yes: WNL, Atraumatic, Normocephalic Neck: Yes: WNL, Supple, Trachea Midline Cardiovascular: Yes: WNL, Regular Rate and Rhythm Respiratory: Yes: WNL, Regular, CTA Bilaterally Gastrointestinal: Yes: WNL ...Rectal Exam: Yes: WNL Renal/: Yes: WNL Breast(s): Yes: WNL Musculoskeletal: Yes: WNL Extremities: Yes: WNL Integumentary: Yes: WNL Neurological: Yes: WNL, Alert, Oriented ...Motor Strength: WNL Psychiatric: Yes: WNL, Alert, Oriented Labs: CBC, BMP 05/27/20 07:36 05/27/20 06:00 Delivery - Delivery Type of Anesthesia: Spinal Episiotomy/Laceration: None EBL (cc): 800 Delivery, Single - Stages of Labor Time of Delivery: 10:57 Time Placenta Delivered: 11:00 - Condition of Infant Livestock Nutritionist/Group Underwriter Present: Yes Name: Polly Jain Infant Gender: Male Weight: 4.213 kg Position: Left, OT Total Hours ROM (Hrs/Mins): 4 min - 1 Minute Total Score: 9 5 Minutes Total Score: 9 - Feeding Plan Initial Plan: Elected not to breastfeed exclusively throughout hospitalization Discharge Summary Problems reviewed: Yes Reason For Visit: C SECTION Condition: Good - Instructions Disposition: HOME - Home Medications Comprehensive Discharge Medication List: Ambulatory Orders Pnv 29-1 Tablet 1 tab PO DAILY 05/17/20 Quetiapine Fumarate [Seroquel -] 400 mg PO HS 05/24/20
[2020-05-28] MEDS: FERROUS SO4 325 MG TABLET (FP) PO SCH ×2 (09:11→17:34)
--- NOTE | 2020-05-28 09:11 | PN ---
Progress Note (short form) - Note Progress Note: pt. states feeling better overall this am. still a little tired/weak, but ambulating well. no sob. no cp. no n,v,d, fever or chills. vss - af chest cta b/l Nl s1s2 abd: soft, nt, nd. bs + incision c/d/i w veena ve: no bleeding ext: no calf tenderness b/l a/p pod 4 s/p rpt pt. spiked post op temp early in post op course. resolution with broad spectrum abx, ambulation, inc. jonathon. pt. also noted to be anemic and tachycardic. received 2 U PRBCs w good effect. H/H currently stable and WBC NL pt. remains AF spoke w ID regarding mgmt. recommends switch to po abx x 24 hrs and if pt. ok may d/c afterwards. rx augmentin 875 po bid starting today. also will order probiotic. pt. states would rather go home in am rather than today. although feels better still feels a little weak and prefers the extra day of rest, recovery and observation. plan for d/c to home in am
[2020-05-28] MEDS: ELECTROLYTE-148 SOLN 1,000 ML IV SCH (09:38)
[2020-05-28] MEDS: ENOXAPARIN NA (PORCINE) 40 MG/0.4 ML DISP.SYRIN SQ SCH (10:36)
[2020-05-28] MEDS: LACTOBACILLUS ACIDOPHILUS 1 TABLET PO SCH (10:36)
[2020-05-28] MEDS: AMOX TR/POT CLAV 875MG/125MG TABLETS (FP) PO SCH ×2 (10:36→21:30)
--- NOTE | 2020-05-28 12:28 | PN ---
Progress Note, Physician History of Present Illness: patient stable feels much better - Current Medication List Current Medications: Active Medications Acetaminophen (Tylenol -) 650 mg PO Q4H PRN PRN Reason: FEVER Last Admin: 05/27/20 23:31 Dose: 650 mg Documented by: Amoxicillin/Clavulanate Potassium (Augmentin - 875mg Tablet) 1 tab PO BID [facility] Last Admin: 05/28/20 10:36 Dose: 1 tab Documented by: Bisacodyl (Dulcolax Suppository -) 10 mg RC PRN PRN PRN Reason: CONSTIPATION Diphenhydramine HCl (Benadryl Injection -) 25 mg IVPUSH Q4H PRN PRN Reason: Pruritis Last Admin: 05/25/20 05:42 Dose: 25 mg Documented by: Enoxaparin Sodium (Lovenox -) 40 mg SQ DAILY [facility] Last Admin: 05/28/20 10:36 Dose: 40 mg Documented by: Ferrous Sulfate (Feosol -) 325 mg PO BIDWM [facility] Last Admin: 05/28/20 09:11 Dose: 325 mg Documented by: Parenteral Electrolytes (Plasma-Lyte 148 -) 1,000 mls @ 125 mls/hr IV ASDIR [facility] Last Admin: 05/28/20 09:38 Dose: Not Given Documented by: Oxytocin/Sodium Chloride (Normal Saline+20 Units Oxytocin -) 20 unit in 1,000 mls @ 125 mls/hr IV ASDIR [facility] Last Admin: 05/27/20 23:30 Dose: Not Given Documented by: Lactated Ringer's (Lactated Ringers Solution) 1,000 ml in 1,000 mls @ 100 mls/hr IV ASDIR [facility] Last Admin: 05/27/20 12:00 Dose: 100 mls/hr Documented by: Ibuprofen (Motrin -) 600 mg PO Q4H PRN PRN Reason: PAIN LEVEL 1-5 Last Admin: 05/27/20 23:30 Dose: 600 mg Documented by: Lactobacillus Acidophilus (Bacid -) 1 tab PO DAILY [facility] Last Admin: 05/28/20 10:36 Dose: 1 tab Documented by: Methylergonovine Maleate (Methergine Injection -) 0.2 mg IM Q4H PRN PRN Reason: Excessive Bleeding (L&D) Ondansetron HCl (Zofran Injection) 4 mg IVPUSH Q4H PRN PRN Reason: NAUSEA Last Admin: 05/24/20 13:00 Dose: 4 mg Documented by: Quetiapine Fumarate (Seroquel Xr -) 400 mg PO HS@2000 [facility] Last Admin: 05/27/20 23:30 Dose: 400 mg Documented by: Simethicone (Mylicon -) 80 mg PO Q4H PRN PRN Reason: GAS Last Admin: 05/27/20 23:31 Dose: 80 mg Documented by: - Objective Vital Signs: Vital Signs Temperature 97.4 F L 05/28/20 06:23 Pulse Rate 96 H 05/27/20 21:18 Respiratory Rate 20 05/27/20 21:18 Blood Pressure 112/59 L 05/27/20 21:18 O2 Sat by Pulse Oximetry (%) 99 05/27/20 21:18 Constitutional: Yes: No Distress, Calm Cardiovascular: Yes: S1, S2 Respiratory: Yes: Regular, CTA Bilaterally Gastrointestinal: Yes: Normal Bowel Sounds, Soft Musculoskeletal: Yes: WNL Extremities: Yes: WNL Neurological: Yes: Alert, Oriented Psychiatric: Yes: Alert, Oriented Labs: CBC, BMP 05/27/20 07:36 05/27/20 06:00 Assessment/Plan abd pain fever weakness plan can stop abx after today all cx reports noted
[2020-05-28] MEDS: LACTATED RINGERS SOLUTION 1,000 ML/1,000 ML INFUS.BAG IV SCH (12:57)
[2020-05-28] MEDS: OXYTOCIN 20 UNITS in 0.9% NS 20 UNIT/1,000 ML INFUS.BAG IV SCH (12:57)
[2020-05-28] MEDS: ACETAMINOPHEN 325 MG TABLET (FP) PO PRN ×2 (14:05→18:40)
[2020-05-28] MEDS: IBUPROFEN 600 MG TABLET (FP) PO PRN ×2 (14:05→18:40)
[2020-05-28] MEDS: SIMETHICONE 80 MG TAB.CHEW (FP) PO PRN (14:06)
[2020-05-28 21:29] VITALS: TEMP 98.1
[2020-05-29] MEDS: ACETAMINOPHEN 325 MG TABLET (FP) PO PRN ×2 (04:23→09:52)
[2020-05-29] MEDS: IBUPROFEN 600 MG TABLET (FP) PO PRN ×2 (04:24→09:53)
[2020-05-29] MEDS: SIMETHICONE 80 MG TAB.CHEW (FP) PO PRN ×2 (04:24→09:52)
[2020-05-29] MEDS: LACTOBACILLUS ACIDOPHILUS 1 TABLET PO SCH (09:52)
[2020-05-29] MEDS: ENOXAPARIN NA (PORCINE) 40 MG/0.4 ML DISP.SYRIN SQ SCH (09:54)
[2020-05-29] MEDS: AMOX TR/POT CLAV 875MG/125MG TABLETS (FP) PO SCH (09:56)
[2020-05-29] MEDS: FERROUS SO4 325 MG TABLET (FP) PO SCH (09:56)
[2020-05-29] MEDS: ELECTROLYTE-148 SOLN 1,000 ML IV SCH (09:58)
[2020-05-29 11:52] VITALS: BP 108/73; PULSE 91
--- NOTE | 2020-05-29 12:37 | PN ---
Progress Note, Physician - Current Medication List Current Medications: Active Medications Acetaminophen (Tylenol -) 650 mg PO Q4H PRN PRN Reason: FEVER Last Admin: 05/29/20 09:52 Dose: 650 mg Documented by: Bisacodyl (Dulcolax Suppository -) 10 mg RC PRN PRN PRN Reason: CONSTIPATION Diphenhydramine HCl (Benadryl Injection -) 25 mg IVPUSH Q4H PRN PRN Reason: Pruritis Last Admin: 05/25/20 05:42 Dose: 25 mg Documented by: Enoxaparin Sodium (Lovenox -) 40 mg SQ DAILY [facility] Last Admin: 05/29/20 09:54 Dose: 40 mg Documented by: Ferrous Sulfate (Feosol -) 325 mg PO BIDWM [facility] Last Admin: 05/29/20 09:56 Dose: 325 mg Documented by: Parenteral Electrolytes (Plasma-Lyte 148 -) 1,000 mls @ 125 mls/hr IV ASDIR [facility] Last Admin: 05/29/20 09:58 Dose: Not Given Documented by: Oxytocin/Sodium Chloride (Normal Saline+20 Units Oxytocin -) 20 unit in 1,000 mls @ 125 mls/hr IV ASDIR [facility] Last Admin: 05/28/20 12:57 Dose: Not Given Documented by: Lactated Ringer's (Lactated Ringers Solution) 1,000 ml in 1,000 mls @ 100 mls/hr IV ASDIR [facility] Last Admin: 05/28/20 12:57 Dose: Not Given Documented by: Ibuprofen (Motrin -) 600 mg PO Q4H PRN PRN Reason: PAIN LEVEL 1-5 Last Admin: 05/29/20 09:53 Dose: 600 mg Documented by: Lactobacillus Acidophilus (Bacid -) 1 tab PO DAILY [facility] Last Admin: 05/29/20 09:52 Dose: 1 tab Documented by: Methylergonovine Maleate (Methergine Injection -) 0.2 mg IM Q4H PRN PRN Reason: Excessive Bleeding (L&D) Ondansetron HCl (Zofran Injection) 4 mg IVPUSH Q4H PRN PRN Reason: NAUSEA Last Admin: 05/24/20 13:00 Dose: 4 mg Documented by: Quetiapine Fumarate (Seroquel Xr -) 400 mg PO HS@2000 [facility] Last Admin: 05/28/20 23:49 Dose: 400 mg Documented by: Simethicone (Mylicon -) 80 mg PO Q4H PRN PRN Reason: GAS Last Admin: 05/29/20 09:52 Dose: 80 mg Documented by: - Objective Vital Signs: Vital Signs Temperature 98.1 F 05/29/20 10:00 Pulse Rate 91 H 05/29/20 10:00 Respiratory Rate 18 05/29/20 10:00 Blood Pressure 108/73 05/29/20 10:00 O2 Sat by Pulse Oximetry (%) 98 05/29/20 10:00 Labs: CBC, BMP 05/27/20 07:36 05/27/20 06:00
--- NOTE | 2020-05-29 12:50 | PN ---
Post Progress Note Post Day: 5 Type of Delivery: Repeat C/S Vital Signs: Vital Signs Temperature 98.1 F 05/29/20 10:00 Pulse Rate 91 H 05/29/20 10:00 Respiratory Rate 18 05/29/20 10:00 Blood Pressure 108/73 05/29/20 10:00 O2 Sat by Pulse Oximetry (%) 98 05/29/20 10:00 Breast Exam: Yes: Soft Uterus: Yes: Fundus Firm, Fundus below umbilicus, Non-tender Abdomen/GI: Yes: Abdomen soft, Tolerating PO Lochia: Yes: Rubra Lochia, amount: Small Extremities: Yes: Calves non-tender Activity: Ambulating - Labs Labs: CBC WBC 9.9 K/mm3 (4.0-10.0) 05/27/20 07:36 RBC 2.85 M/mm3 (3.60-5.2) L 05/27/20 07:36 Hgb 8.5 GM/dL (10.7-15.3) L 05/27/20 07:36 Hct 24.8 % (32.4-45.2) L 05/27/20 07:36 MCV 87.0 fl (80-96) 05/27/20 07:36 MCH 29.9 pg (25.7-33.7) 05/27/20 07:36 MCHC 34.3 g/dl (32.0-36.0) 05/27/20 07:36 RDW 16.0 % (11.6-15.6) H 05/27/20 07:36 Plt Count 189 K/MM3 (134-434) D 05/27/20 07:36 MPV 8.2 fl (7.5-11.1) 05/27/20 07:36 Absolute Neuts (auto) 7.3 K/mm3 (1.5-8.0) 05/27/20 07:36 Neutrophils % 73.7 % (42.8-82.8) 05/27/20 07:36 Neutrophils % (Manual) 70.7 % (42.8-82.8) 05/27/20 07:36 Band Neutrophils % 9.1 % 05/27/20 07:36 Lymphocytes % 16.1 % (8-40) D 05/27/20 07:36 Lymphocytes % (Manual) 14.2 % (8-40) 05/27/20 07:36 Monocytes % 7.5 % (3.8-10.2) 05/27/20 07:36 Monocytes % (Manual) 3 % (3.8-10.2) L 05/27/20 07:36 Eosinophils % 2.4 % (0-4.5) D 05/27/20 07:36 Eosinophils % (Manual) 1.0 % (0-4.5) 05/27/20 07:36 Basophils % 0.3 % (0-2.0) 05/27/20 07:36 Basophils % (Manual) 0.0 % (0-2.0) 05/27/20 07:36 Myelocytes % (Man) 0 % (0-2) 05/27/20 07:36 Promyelocytes % (Man) 0 % (0-2) 05/27/20 07:36 Blast Cells % (Manual) 0 % (0-0) 05/27/20 07:36 Nucleated RBC % 0 % (0-0) 05/27/20 07:36 Metamyelocytes 1 % (0-2) 05/27/20 07:36 Hypochromia 0 05/27/20 07:36 Platelet Estimate Normal 05/27/20 07:36 Polychromasia 0 05/27/20 07:36 Poikilocytosis 0 05/27/20 07:36 Anisocytosis 0 05/27/20 07:36 Microcytosis 0 05/27/20 07:36 Macrocytosis 0 05/27/20 07:36 Assessment/Plan S/P delivery, pod # 5, with no complaints Will repeat Cbc and discharge home Follow up on 05/31/20.
--- NOTE | 2020-05-29 12:54 | DS ---
Physical Exam-[employer]E Vital Signs: Vital Signs Temperature 98.1 F 05/29/20 10:00 Pulse Rate 91 H 05/29/20 10:00 Respiratory Rate 18 05/29/20 10:00 Blood Pressure 108/73 05/29/20 10:00 O2 Sat by Pulse Oximetry (%) 98 05/29/20 10:00 Constitutional: Yes: Well Nourished Eyes: Yes: WNL HENT: Yes: WNL Neck: Yes: WNL Cardiovascular: Yes: WNL Respiratory: Yes: WNL Gastrointestinal: Yes: WNL Renal/: Yes: WNL Pelvis: Yes: WNL External Genitalia: Yes: Normal Vaginal Exam: Yes: Normal Cervix: Yes: Normal Uterus: Yes: Normal Adnexa: Normal: Bilateral ....Post : Yes: Uterus firm, Uterus non-tender, Slight lochia rubra Breast(s): Yes: WNL Musculoskeletal: Yes: WNL Extremities: Yes: WNL Edema: LLE: Trace, RLE: Trace Integumentary: Yes: WNL Wound/Incision: Yes: Clean/Dry, Well Approximated Neurological: Yes: WNL ...Motor Strength: WNL Psychiatric: Yes: WNL Labs: CBC, BMP 05/27/20 07:36 05/27/20 06:00 Delivery - Delivery Vaginal Delivery: No Problems Section: Repeat Type of Anesthesia: Spinal Episiotomy/Laceration: None EBL (cc): 800 Delivery, Single - Stages of Labor Time of Delivery: 10:57 Time Placenta Delivered: 11:00 - Condition of Dioramist/Interventional Cardiologist Present: Yes Name: Polly Jain Gender: Male Weight: 4.213 kg Position: Left, OT Total Hours ROM (Hrs/Mins): 4 min - 1 Minute Total Score: 9 5 Minutes Total Score: 9 - [place] Feeding Plan Initial Plan: Elected not to breastfeed exclusively throughout hospitalization Discharge Summary Problems reviewed: Yes Reason For Visit: C SECTION Condition: Stable - Instructions Disposition: HOME - Home Medications Comprehensive Discharge Medication List: Ambulatory Orders Pnv 29-1 Tablet 1 tab PO DAILY 05/17/20 Quetiapine Fumarate [Seroquel -] 400 mg PO HS 05/24/20
[2020-05-29 12:55] LABS: BASO % 0.5 % (0-2.0); EOS % 2.5 % (0-4.5); HEMATOCRIT 29.3 % (32.4-45.2); HEMOGLOBIN 9.9 GM/dL (10.7-15.3); LYMPH % 19.5 % (8-40); MCH 30.3 pg (25.7-33.7); MCHC 33.7 g/dl (32.0-36.0); MEAN CELL VOLUME 89.9 fl (80-96); MEAN PLT VOLUME 7.4 fl (7.5-11.1); MONO % 5.3 % (3.8-10.2); NEUT % 72.2 % (42.8-82.8); PLATELET COUNT 251 K/MM3 (134-434); RBC 3.26 M/mm3 (3.60-5.2); RDW 15.2 % (11.6-15.6); WHITE BLOOD COUNT 8.7 K/mm3 (4.0-10.0)
[2020-05-29 14:49] LABS: ANISOCYTOSIS 1+; MACROCYTOSIS 0; PLATELET ESTIMATE NORMAL; TEAR DROP CELLS 1+
--- NOTE | 2020-05-30 17:12 | PATH ---
Surgical Pathology Report Patient Name: MARLA JOSEPH Med. Rec. #: [id number] /Age/Gender: 1995 (Age: 24) / F Account: [id number] Location: [facility] OBS/BINDERY LEADPERSON Taken: 05/24/2020 Received: 05/24/2020 Reported: 05/30/2020 Physicians: Tejinder Limon M.D. Specimen(s) Received PLACENTA Clinical History Final Diagnosis PLACENTA, SECTION: 591 G THIRD TRIMESTER PLACENTA WITH TRIVASCULAR UMBILICAL CORD AND UNREMARKABLE PLACENTAL MEMBRANES. Electronically Signed Jil Srivastava M.D. Gross Description The specimen is received fresh labeled placenta and is a 591 gram, 22.0 x 17.0 x 3.0 cm. placenta with attached membranes and umbilical cord. The attached membranes are martinez, translucent with focal opacities and insert marginally. The umbilical cord measures 27 cm. in length and averages 1.1 cm. in diameter. The cord inserts eccentrically, 6.5 cm. to the nearest margin. No true knots or strictures are identified. Cut surface of the umbilical cord reveals 3 vessels. The surface is bynum blue with moderate fibrin deposition and appropriate caliber vessels. The maternal surface is red-brown with focal defects. Sectioning reveals red-brown, spongy parenchyma. No lesions are identified. Purchasing Officer sections are submitted in three cassettes as follows: 1- membrane rolls and umbilical cord; 2-3- full thickness sections of placenta. /05/27/2020 [facility]/05/27/2020
== END 2020-05-29 13:57 | disposition home or self-care (01) | DRG 540 ==
LOC: JLDR 07:30 → J3W 12:26
PROVIDERS: ADMIT Obstetrics & Gynecology; ATTEND Obstetrics & Gynecology
PROC: 10D00Z1 Extraction of Products of Conception, Low, Open Approach (ICD-10-PCS; principal; 2020-05-24 10:00)
PROC: 30233N1 Transfusion of Nonautologous Red Blood Cells into Peripheral Vein, Percutaneous Approach (ICD-10-PCS; 2020-05-26)
DX: O34.219 Maternal care for unspecified type scar from previous cesarean delivery (principal); O99.344 Other mental disorders complicating childbirth; F32.89 Other specified depressive episodes; O90.89 Other complications of the puerperium, not elsewhere classified; O86.4 Pyrexia of unknown origin following delivery; R00.0 Tachycardia, unspecified; Z3A.39 39 weeks gestation of pregnancy; Z37.0 Single live birth
CPT/HCPCS: 36415; 36430; 36511; 36600; 71045-TC-FY; 74176-TC; 80053; 81003; 82803; 83605; 83735; 85025; 86850; 86900; 86901; 86922; 87040; 87086; 87340; 88307-TC; 93005; 93010; 94760; J0131; P9038; P9058